=== PATIENT | male | born 1970 | race Caucasian/White ===

== ENCOUNTER → 2017-07-09 | Outpatient (CLI) | payer MEDICAID ==
--- NOTE | 2017-07-11 09:40 | ECHOF ---
Referral Reason:Q23.1 Bicuspid arotic valve MEASUREMENTS -------- HEIGHT: 190.5 cm WEIGHT: 108.9 kg BP: 163/93 RVIDd: 3.5 cm (< 3.3) IVSd: 1.5 cm (0.6 - 1.1) LVIDd: 4.4 cm (3.9 - 5.3) LVPWd: 1.4 cm (0.6 - 1.1) IVSs: 1.7 cm LVIDs: 3.2 cm LVPWs: 1.7 cm LA Diam: 3.8 cm (2.7 - 3.8) LAESV Index (A-L): 28.39 ml/m Ao Diam: 4.3 cm (2.0 - 3.7) AV Cusp: 2.1 cm (1.5 - 2.6) MV EXCURSION: 16.659 mm (> 18.000) MV EF SLOPE: 93 mm/s (70 - 150) EPSS: 1.4 cm MV E Rober: 0.71 m/s MV DecT: 439 ms MV A Rober: 0.86 m/s MV E/A Ratio: 0.83 AV maxP.21 mmHg AV meanP.19 mmHg AR PHT: 511 ms RAP: 5.00 mmHg RVSP: 23.28 mmHg FINDINGS -------- Sinus rhythm. This was a technically good study. The left ventricular size is normal. There is moderate concentric left ventricular hypertrophy. O verall left ventricular systolic function is normal with, an EF between 55 - 60 %. The right ventricle is mildly enlarged. Normal LA size by volume 22+/-6 ml/m2. The right atrium is normal in size. The aortic valve is bicuspid. There is mild to moderate aortic valve sclerosis. There is moderate aortic regurgitation. There is mild aortic stenosis present. Peak/mean gradient across the Aorti c Valve is 26.21mmHg / 15.19mmHg. The mitral valve is normal. There is trace to mild mitral regurgitation. Ant. Mitral leaflet is m yxomatous and slightly redundant without prolapse. Mild tricuspid regurgitation present. Right ventricular systolic pressure is normal at < 35 mmHg. Trace/mild (physiologic) pulmonic regurgitation. The aortic root is dilated measuring 4.3cm. Normal inferior vena cava with normal inspiratory collapse consistent with estimated right atrial pre ssure of 5 mmHg. There is no pericardial effusion. CONCLUSIONS -------- 1. Sinus rhythm. 2. This was a technically good study. 3. The left ventricular size is normal. 4. There is moderate concentric left ventricular hypertrophy. 5. Overall left ventricular systolic function is normal with, an EF between 55 - 60 %. 6. The right ventricle is mildly enlarged. 7. Normal LA size by volume 22+/-6 ml/m2. 8. The right atrium is normal in size. 9. The aortic valve is bicuspid. 10. There is mild to moderate aortic valve sclerosis. 11. There is moderate aortic regurgitation. 12. There is mild aortic stenosis present. 13. Peak/mean gradient across the Aortic Valve is 26.21mmHg / 15.19mmHg. 14. The mitral valve is normal. 15. There is trace to mild mitral regurgitation. 16. Mild tricuspid regurgitation present. 17. Right ventricular systolic pressure is normal at < 35 mmHg. 18. Trace/mild (physiologic) pulmonic regurgitation. 19. The aortic root is dilated measuring 4.3cm. 20. Normal inferior vena cava with normal inspiratory collapse consistent with estimated right atrial pressure of 5 mmHg. 21. There is no pericardial effusion. SUSTAINABILITY PROJECT COORDINATOR: Karli Renee RDCS
== END | disposition home or self-care (01) ==
LOC: RADECHMAIN 16:20
PROVIDERS: ATTEND Family Medicine
DX: I08.2 Rheumatic disorders of both aortic and tricuspid valves (principal); I77.819 Aortic ectasia, unspecified site
CPT/HCPCS: 93306

== ENCOUNTER 2017-07-16 08:00 | Day surgery (SDC) | payer MEDICAID ==
[2017-07-14 14:43] VITALS: BMI 31.1
[2017-07-16 08:25] VITALS: TEMP 97.8
[2017-07-16] MEDS: LACTATED RINGERS 1,000 ML IV SCH ×2 (08:31→08:44)
[2017-07-16] MEDS ORDERED: LIDOCAINE 1% 20 ML VIAL (10MG/ML) FOR IV START INTRADERMA ONE (08:31)
[2017-07-16] MEDS ORDERED: LIDOCAINE 1% INJ 10MG/ML (20 ML MDV) ONE (08:49)
[2017-07-16] MEDS ORDERED: PROPOFOL 10 MG/ML 20 ML VIAL IV ONE (08:49)
--- NOTE | 2017-07-16 09:06 | P.PCN ---
Date of Procedure: 07/16/17 Procedure(s) Performed: BRIEF HISTORY: Patient is a 46-year-old pleasant white male, scheduled for an elective colonoscopy as a part of evaluation of blood in the stool. PROCEDURE PERFORMED: Colonoscopy. PREOPERATIVE DIAGNOSIS: Blood in the stool. IV sedation per Anesthesia. PROCEDURE: After informed consent was obtained, the patient, was brought into the endoscopy unit. IV sedation was administered by Anesthesia under continuous monitoring. Digital rectal examination was normal. Initially the Olympus CF- 160 flexible video colonoscope was then inserted in the rectum, gradually advanced into the cecum without any difficulty. Careful examination was performed as the scope was gradually being withdrawn. Ileocecal valve and the appendiceal orifice were visualized and appeared normal. Prep was excellent. Mucosa of the cecum, ascending colon, transverse colon, descending colon, sigmoid colon, and rectum appeared normal. Retroflexion was performed in the rectum and small internal hemorrhoids were seen. The patient tolerated the procedure well. IMPRESSION: Normal-appearing colon from rectum to cecum with no evidence of colorectal neoplasia. Small internal hemorrhoids. RECOMMENDATIONS: Findings of this examination were discussed with the patient as well as his family. He was advised to have a repeat screening colonoscopy in 10 years..
[2017-07-16 09:09] VITALS: RESP 16
[2017-07-16 09:20] VITALS: BP 134/90; PULSE 65
== END 2017-07-16 09:52 | disposition home or self-care (01) ==
LOC: ORWHC2ENDO 08:00
PROVIDERS: ATTEND Internal Medicine Gastroenterology
DX: K64.8 Other hemorrhoids (principal); Z79.1 Long term (current) use of non-steroidal anti-inflammatories (NSAID); Z79.899 Other long term (current) drug therapy; K21.9 Gastro-esophageal reflux disease without esophagitis
CPT/HCPCS: 45378; J2001; J2704

== ENCOUNTER → 2017-10-04 | Outpatient (CLI) | payer MEDICAID ==
--- NOTE | 2017-10-04 11:49 | CT ---
EXAMINATION TYPE: CT angio chest DATE OF EXAM: 10/04/2017 COMPARISON: CT chest October 26, 2012. HISTORY: Bicuspid valve disorder, pt offers no complaints CT DLP: 364.2 mGycm. Automated Exposure Control for Dose Reduction was Utilized. CONTRAST: CTA scan of the thorax is performed with IV Contrast, patient injected with 100 mL of Isovue 370, ane urysm protocol. Three-D reconstructed are created on independent workstation and reviewed. FINDINGS: LUNGS: The lungs are grossly clear, there is no concerning parenchymal mass or nodule identified. T here is no pleural effusion or pneumothorax seen. The tracheobronchial tree is patent. MEDIASTINUM: There is satisfactory enhancement of the pulmonary artery and its branches, there is no CT evidence for pulmonary embolism. There are no greater than 1 cm hilar or mediastinal lymph nodes. No cardiomegaly or pericardial effusion is seen. Some pulsation artifact at root of aorta is ident ified. Ascending aorta measures up to 4.7 cm in diameter axial image 31. There is mild to moderate ca lcification at aortic valve level without obvious suspicious thickening of leaflets. No aneurysmal ex tension into arch or descending aorta is identified. No linear hypodensity or dissection is seen. The re is normal three-vessel origin from the arch. No significant plaque or stenosis is present. OTHER: Small splenule is seen in splenic hilum axial image 63. Mild multilevel spurring in thoracic s pine is noted. IMPRESSION: Ascending aortic aneurysm measures up to 4.7 cm in size larger versus prior study.
== END | disposition home or self-care (01) ==
LOC: RADCTMAIN 10:55
PROVIDERS: ATTEND Internal Medicine Interventional Cardiology
DX: I71.2 Thoracic aortic aneurysm, without rupture (principal)
CPT/HCPCS: 71275; Q9967

== ENCOUNTER → 2018-04-27 | Outpatient (CLI) | payer MEDICAID ==
--- NOTE | 2018-04-27 22:17 | CT ---
EXAMINATION TYPE: CT angio chest DATE OF EXAM: 04/27/2018 COMPARISON: 10/04/2017 and 10/26/2012 HISTORY: 47-year-old male Follow up for ascending aortic aneurysm. TECHNIQUE: Contiguous axial scanning of the chest performed with IV Contrast, patient injected with 1 00ml mL of Isovue 370.: Sagittal MIP reconstructions performed. 3-D reconstructions generated on a de dicated independent workstation. CT DLP: 485 mGycm Automated exposure control for dose reduction was used. FINDINGS: Heart is upper limits of normal in size without pericardial effusion. Aortic root measures 4.3 cm versus 4.1 cm, previously. Mid ascending aorta measures 4.6 cm versus 4.6 cm, previously. Conventional arch vessel branching anatomy. Upper descending thoracic aorta borderline ectatic at 3.0 cm. Mid descending thoracic aorta ectatic at 2.8 cm. Lower descending thoracic aorta ectatic at 2.6 cm. Mildly enlarged caliber to the main right pulmonary artery measuring up to 2.7 cm may reflect underly ing pulmonary arterial hypertension. No thoracic lymphadenopathy by CT size criteria. A 4 mm peripheral right upper lobe pulmonary nodule is stable from 2012. Axial image 17. There is str fabio atelectasis at the left base. No consolidation or pleural effusion. Visualized upper abdomen shows some enlarged mesenteric lymph nodes measuring up to 1.0 cm, axial dory ge 75. Imaging on the current study extends more caudally than on prior exam. Unable to determine sta bility. There is a hilar splenule and small hiatal hernia. Bones: Mild endplate spondylosis within the thoracic spine. No osseous destructive process. IMPRESSION: 1. MILDLY ANEURYSMAL AORTIC ROOT IS STABLE TO MINIMALLY INCREASED (4.3 CM NOW VERSUS 4.1 CM). 2. STABLE ANEURYSM ASCENDING AORTA 4.6 CM. 3. STABLE ECTATIC DESCENDING THORACIC AORTA MEASURING UP TO 3.0 CM. 4. POSSIBLE UNDERLYING PULMONARY ARTERIAL HYPERTENSION. 5. SOME MILDLY ENLARGED MESENTERIC LYMPH NODES IN THE MID ABDOMEN MEASURING UP TO 1 CM. THE PATIENT' S PREVIOUS CT CHEST EXAMS DID NOT EXTEND THIS FAR INFERIORLY AND STABILITY CANNOT BE DETERMINED. CONS IDER INCLUDING THE ABDOMEN ON THE PATIENT'S FOLLOW-UP EXAM. 6. SMALL HIATAL HERNIA.
--- NOTE | 2018-04-28 11:58 | ECHOF ---
Referral Reason:I71.2 Ascending aortic aneurysm MEASUREMENTS -------- HEIGHT: 188.0 cm WEIGHT: 108.9 kg BP: RVIDd: 3.3 cm (< 3.3) IVSd: 1.4 cm (0.6 - 1.1) LVIDd: 5.4 cm (3.9 - 5.3) LVPWd: 1.3 cm (0.6 - 1.1) IVSs: 1.9 cm LVIDs: 3.4 cm LVPWs: 1.7 cm LA Diam: 3.5 cm (2.7 - 3.8) Ao Diam: 3.7 cm (2.0 - 3.7) AV Cusp: 2.0 cm (1.5 - 2.6) LA Diam: 3.4 cm (2.7 - 3.8) EPSS: 1.0 cm MV E Rober: 0.79 m/s MV DecT: 278 ms MV A Rober: 0.82 m/s MV E/A Ratio: 0.97 AV maxP.78 mmHg AV meanP.66 mmHg AR PHT: 451 ms RAP: 5.00 mmHg RVSP: 24.36 mmHg MV EF SLOPE: 60.64 mm/s (70 - 150) MV EXCURSION: 1.93 cm (> 18.000) FINDINGS -------- Sinus rhythm. This was a technically good study. The left ventricular size is normal. There is moderate concentric left ventricular hypertrophy. O verall left ventricular systolic function is normal with, an EF between 55 - 60 %. The right ventricle is normal in size. The left atrial size is normal. The right atrial size is normal. There is moderate aortic regurgitation. There is mild aortic stenosis present. Peak/mean gradient across the Aortic Valve is 31.78mmHg / 15.66mmHg. Functionally bicuspid aortic valve. The mitral valve is normal. Mild mitral regurgitation is present. Mild tricuspid regurgitation present. There is no evidence of pulmonary hypertension. The right v entricular systolic pressure, as measured by Doppler, is 24.36mmHg. Trace/mild (physiologic) pulmonic regurgitation. The aortic root size is normal. There is no pericardial effusion. CONCLUSIONS -------- 1. Sinus rhythm. 2. This was a technically good study. 3. The left ventricular size is normal. 4. There is moderate concentric left ventricular hypertrophy. 5. Overall left ventricular systolic function is normal with, an EF between 55 - 60 %. 6. The left atrial size is normal. 7. There is moderate aortic regurgitation. 8. There is mild aortic stenosis present. 9. Peak/mean gradient across the Aortic Valve is 31.78mmHg / 15.66mmHg. 10. Functionally bicuspid aortic valve. 11. Mild mitral regurgitation is present. 12. Mild tricuspid regurgitation present. 13. There is no evidence of pulmonary hypertension. 14. Trace/mild (physiologic) pulmonic regurgitation. 15. The aortic root size is normal. 16. There is no pericardial effusion. BUSINESS SEGMENT MANAGER: Phylicia Le RDCS
== END | disposition home or self-care (01) ==
LOC: RADECHMAIN 14:49
PROVIDERS: ATTEND Internal Medicine Interventional Cardiology
DX: Q23.1 Congenital insufficiency of aortic valve (principal); I77.810 Thoracic aortic ectasia
CPT/HCPCS: 93306; 71275; Q9967

== ENCOUNTER → 2018-06-22 | Outpatient (CLI) | payer MEDICAID ==
--- NOTE | 2018-06-22 22:11 | CT ---
EXAMINATION TYPE: CT abdomen pelvis w con DATE OF EXAM: 06/22/2018 COMPARISON: NONE HISTORY: 47-year-old male Non-specific mesenteric lymphadenitis. TECHNIQUE: Contiguous axial scanning of the abdomen and pelvis following administration of 100 ml Iso alexis 300 IV contrast. Delayed images through the kidneys and coronal/sagittal reconstructions perform ed. CT DLP: 1135.2 mGycm Automated exposure control for dose reduction was used. FINDINGS: Heart normal size without pericardial effusion. Lung bases clear without pleural effusion. There is a small hiatal hernia. No focal liver lesion or biliary ductal dilatation. Portal venous system is patent. Gallbladder, adrenal glands, kidneys, spleen with hilar splenule, and pancreas appear within normal l imits. Scattered mesenteric lymph nodes are present measuring up to 1.1 cm, for example, refer to coronal im age 41. Numerous lymph nodes are nonenlarged and borderline enlarged. No dilated small bowel, free fluid, or free air. No retroperitoneal lymphadenopathy seen. Scattered mild to moderate stool burden. No pericolonic inflammatory change. Bladder urine distended. No abnormal fluid collection in pelvis or pelvic lymphadenopathy. Bones: Mild degenerative spurring at the hips. Degenerative bridging ankylosis at the SI joints. No o sseous destructive process. IMPRESSION: 1. NUMEROUS NONENLARGED AND BORDERLINE TO MILDLY ENLARGED MESENTERIC LYMPH NODES MEASURING UP TO 1.1 CM. FINDINGS MAY BE IN KEEPING WITH MESENTERIC ADENITIS. CONSIDER FOLLOW-UP IN 3 MONTHS TO ENSURE STA BILITY OR RESOLUTION AND EXCLUDE A MORE AGGRESSIVE ETIOLOGY. 2. SMALL HIATAL HERNIA.
== END ==
LOC: RADCTMAIN 15:57
PROVIDERS: ATTEND Family Medicine
DX: R59.0 Localized enlarged lymph nodes (principal); K44.9 Diaphragmatic hernia without obstruction or gangrene
CPT/HCPCS: 74177; Q9967

== ENCOUNTER → 2018-06-25 | Outpatient (CLI) | payer MEDICAID ==
[2018-06-25 08:57] LABS: Basophils # (A) 0.1 k/uL (0-0.2); Basophils % (A) 1 %; Eosinophils # (A) 0.3 k/uL (0-0.7); Eosinophils % (A) 5 %; HCT 46.1 % (39.0-53.0); HGB 15.3 gm/dL (13.0-17.5); Lymphocytes # (A) 1.7 k/uL (1.0-4.8); Lymphocytes % (A) 31 %; MCH 31.2 pg (25.0-35.0); MCHC 33.2 g/dL (31.0-37.0); Mean Platelet Volume 7.2; Monocytes # (A) 0.6 k/uL (0-1.0); Monocytes % (A) 11 %; Neutrophils # (A) 2.7 k/uL (1.3-7.7); Neutrophils % (A) 50 %; Platelet Count 211 k/uL (150-450); RBC 4.91 m/uL (4.30-5.90); RDW 12.7 % (11.5-15.5); WBC 5.4 k/uL (3.8-10.6)
[2018-06-25 16:37] LABS: Albumin 4.5 g/dL (3.80-4.90); Albumin/Globulin Ratio 1.96 (1.60-3.17); Anion Gap 9.4 mmol/L (4.00-12.00); Calcium 9.3 mg/dL (8.7-10.3); Carbon Dioxide 25.6 mmol/L (21.6-31.8); Globulin 2.3 g/dL (1.6-3.3); LDL Cholesterol,Calculated 79.8 mg/dL (0.0-131.0); Potassium 4.4 mmol/L (3.5-5.5); Total Bilirubin 0.7 mg/dL (0.3-1.2); Total Protein 6.8 g/dL (6.2-8.2); VLDL Calculation 11.2 mg/dL (5.00-40.00)
[2018-06-25 16:45] LABS: T4, Free (Free Thyroxine) 0.9 ng/dL (0.80-1.80)
== END | disposition home or self-care (01) ==
LOC: LABWHC1 08:22
PROVIDERS: ATTEND Family Medicine
DX: Z00.00 Encounter for general adult medical examination without abnormal findings (principal)
CPT/HCPCS: 36415; 80053; 80061; 84153; 84439; 84443; 85025

== ENCOUNTER → 2019-01-09 | Outpatient (CLI) | payer MEDICAID ==
--- NOTE | 2019-01-09 16:23 | CT ---
CT CHEST FOR PULMONARY EMBOLISM. EXAMINATION TYPE: CT angio chest DATE OF EXAM: 01/09/2019 INDICATION: Bicuspid aortic aneurysm. CT DLP: 479 mGycm, Automated exposure control for dose reduction was used. CONTRAST: Patient injected with 100 mL of Isovue 370. COMPARISON: 04/27/2018 TECHNIQUE: CT of the chest is performed on a spiral scan at 2 mm thick sections. Study is performed with intravenous contrast timed for evaluation for aortic evaluation This will limit additional porti ons of the evaluation. 3-D MIP images reconstructed by the technologist are reviewed on the computer in the coronal and sagittal planes. FINDINGS: No persistent obvious filling defects are evident to suggest an acute pulmonary embolism. No mediastinal or hilar adenopathy enlarged by CT criteria is evident. The ascending aorta diameter at the level of the main pulmonary artery is 4.2 cm. The main pulmonary artery diameter at the bifur cation is 2.6 cm. The aorta at the aortic root measures 3.8 cm. The aorta at the aortic arch measures 2.8 cm. The desce nding thoracic aorta at the level of the diaphragm measures 2.8 cm. Lung windows are clear. Limited CT section through the upper abdomen are unremarkable. IMPRESSIONS: 1. Ascending thoracic aortic aneurysm of 4.2 cm is stable from comparison
--- NOTE | 2019-01-09 17:06 | ECHOF ---
Referral Reason:Bicuspid aortic aneurysm I71.2 MEASUREMENTS -------- HEIGHT: 190.5 cm WEIGHT: 106.6 kg BP: 131/82 RVIDd: 3.5 cm (< 3.3) IVSd: 1.4 cm (0.6 - 1.1) LVIDd: 5.8 cm (3.9 - 5.3) LVPWd: 1.3 cm (0.6 - 1.1) IVSs: 1.8 cm LVIDs: 4.2 cm LVPWs: 1.8 cm LA Diam: 3.6 cm (2.7 - 3.8) LAESV Index (A-L): 35.16 ml/m Ao Diam: 4.2 cm (2.0 - 3.7) AV Cusp: 2.0 cm (1.5 - 2.6) EPSS: 1.3 cm MV E Rober: 0.83 m/s MV DecT: 388 ms MV A Rober: 0.67 m/s MV E/A Ratio: 1.24 AV maxP.29 mmHg AV meanP.54 mmHg AR PHT: 876 ms RAP: 5.00 mmHg RVSP: 24.42 mmHg MV EF SLOPE: 50.50 mm/s (70 - 150) MV EXCURSION: 1.59 cm (> 18.000) FINDINGS -------- Sinus rhythm. This was a technically good study. The left ventricular size is normal. There is moderate concentric left ventricular hypertrophy. O verall left ventricular systolic function is normal with, an EF between 60 - 65 %. The right ventricle is mildly enlarged. Left atrium is moderately dilated by volume. The right atrium is normal in size and function. Interatrial and interventricular septum intact. The aortic valve is bicuspid. There is moderate aortic valve sclerosis without stenosis. There is mild aortic regurgitation. There is mild aortic stenosis present. Peak/mean gradient across the valve is 28.29mmHg / 16.54mmHg. The aortic root and ascending aorta are dilated measuring up to 43 mm. Normal inferior vena cava with normal inspiratory collapse consistent with estimated right atrial pre ssure of 5 mmHg. There is no pericardial effusion. CONCLUSIONS -------- 1. Sinus rhythm. 2. This was a technically good study. 3. The left ventricular size is normal. 4. There is moderate concentric left ventricular hypertrophy. 5. Overall left ventricular systolic function is normal with, an EF between 60 - 65 %. 6. The right ventricle is mildly enlarged. 7. Left atrium is moderately dilated by volume. 8. The right atrium is normal in size and function. 9. Interatrial and interventricular septum intact. 10. The aortic valve is bicuspid. 11. There is moderate aortic valve sclerosis without stenosis. 12. There is mild aortic regurgitation. 13. There is mild aortic stenosis present. 14. Peak/mean gradient across the valve is 28.29mmHg / 16.54mmHg. 15. The aortic root and ascending aorta are dilated measuring up to 43 mm. 16. Normal inferior vena cava with normal inspiratory collapse consistent with estimated right atrial pressure of 5 mmHg. 17. There is no pericardial effusion. RAILWAY SIGNAL OPERATOR: TIKA Alarcon
== END | disposition home or self-care (01) ==
LOC: RADCTMAIN 15:16
PROVIDERS: ATTEND Internal Medicine Interventional Cardiology
DX: I71.2 Thoracic aortic aneurysm, without rupture (principal)
CPT/HCPCS: 93306; 71275; Q9967

== ENCOUNTER → 2019-01-12 | Outpatient (CLI) | payer MEDICAID ==
--- NOTE | 2019-01-12 15:44 | CT ---
EXAMINATION TYPE: CT abdomen pelvis w con DATE OF EXAM: 01/12/2019 COMPARISON: CT abdomen and pelvis June 22, 2018 HISTORY: Mesenteric lymphadenopathy CT DLP: 1260.40 mGycm, Automated Exposure Control for Dose Reduction was Utilized. CONTRAST: CT scan of the abdomen and pelvis is performed with oral and with IV Contrast, patient injected with 100 mL of Isovue 300. FINDINGS: LUNG BASES: No significant abnormality is appreciated. LIVER/GB: No significant abnormality is appreciated. PANCREAS: No significant abnormality is seen. SPLEEN: No significant abnormality is seen. ADRENALS: No significant abnormality is seen. KIDNEYS: No significant abnormality is seen. BOWEL: Oral contrast does not reach level of the terminal ileum making evaluation of distal bowel sub optimal. No suspicious small or large bowel dilatation. PROSTATE/SEMINAL VESICLES: No gross abnormality seen. LYMPH NODES: No greater than 1cm abdominal or pelvic lymph nodes are appreciated. Prominent but subc entimeter lymph nodes throughout the central mesentery are redemonstrated seen best on coronal images . OSSEOUS STRUCTURES: No significant abnormality is seen. OTHER: No significant additional abnormality is seen. IMPRESSION: No new or enlarging adenopathy identified.
== END | disposition home or self-care (01) ==
LOC: RADCTMAIN 13:23
PROVIDERS: ATTEND Family Medicine
DX: I88.0 Nonspecific mesenteric lymphadenitis (principal)
CPT/HCPCS: 74177; Q9967

== ENCOUNTER → 2020-04-10 | Outpatient (CLI) | payer MEDICAID ==
--- NOTE | 2020-04-10 15:38 | CT ---
CT CHEST FOR PULMONARY EMBOLISM. EXAMINATION TYPE: CT angio chest DATE OF EXAM: 04/10/2020 INDICATION: Ascending aortic aneurysm CT DLP: 945.30 mGycm, Automated exposure control for dose reduction was used. CONTRAST: Patient injected with 100 ml mL of Isovue 370. COMPARISON: 01/09/2019 TECHNIQUE: CT of the chest is performed on a spiral scan at 2 mm thick sections. Study is performed with intravenous contrast timed for evaluation for pulmonary embolism. This will limit additional po rtions of the evaluation. 3-D MIP images reconstructed by the technologist are reviewed on the compu ter in the coronal and sagittal planes. FINDINGS: No persistent filling defects are evident to suggest an acute pulmonary embolism. No mediastinal or hilar adenopathy enlarged by CT criteria is evident. The ascending aorta diameter at the level of the main pulmonary artery is 4.4 cm. The main pulmonary artery diameter at the bifur cation is 3.1 cm. The aorta at the aortic arch is 2.6 cm. The aorta at the aortic root is 3.9 cm. The aorta at the diap hragm is 2.7 cm. There is a 0.5 cm peripheral nodule right upper lobe. Series [address] section through the upper abdomen are unremarkable. IMPRESSIONS: 1. Stable 0.5 cm right upper lobe nodule. 2. Ascending thoracic aortic aneurysm 4.4 cm. This is increased from 4.2 cm previous.
--- NOTE | 2020-04-10 17:09 | ECHOF ---
Referral Reason:Q23.1 Bicuspid aortic valve, I71.2 Ascending aortic aneurysm MEASUREMENTS -------- HEIGHT: 185.4 cm WEIGHT: 113.4 kg BP: RVIDd: 3.3 cm (< 3.3) IVSd: 2.0 cm (0.6 - 1.1) LVIDd: 4.1 cm (3.9 - 5.3) LVPWd: 1.9 cm (0.6 - 1.1) IVSs: 2.4 cm LVIDs: 2.6 cm LVPWs: 2.3 cm LAESV Index (A-L): 30.75 ml/m Ao Diam: 3.5 cm (2.0 - 3.7) AV Cusp: 1.9 cm (1.5 - 2.6) LA Diam: 3.4 cm (2.7 - 3.8) MV EXCURSION: 16.399 mm (> 18.000) MV EF SLOPE: 69 mm/s (70 - 150) EPSS: 1.6 cm MV E Rober: 0.87 m/s MV DecT: 233 ms MV A Rober: 0.85 m/s MV E/A Ratio: 1.02 AV maxP.88 mmHg AV meanP.39 mmHg AR PHT: 490 ms RAP: 5.00 mmHg RVSP: 22.25 mmHg FINDINGS -------- This was a technically good study. The left ventricular size is normal. There is severe concentric left ventricular hypertrophy. Ove rall left ventricular systolic function is normal with, an EF between 55 - 60 %. Normal LAP. Grade 1 Diastolic Dysfunction. The right ventricle is normal in size. LA is midly dilated 29-33ml/m2. The right atrial size is normal. The aortic valve is bicuspid. There is mild aortic regurgitation. There is mild aortic stenosis p resent. Peak/mean gradient across the Aortic Valve is 25.88mmHg / 15.39mmHg. The mitral valve is normal. The mitral valve leaflets are mildly thickened. Mild mitral regurgita tion is present. The tricuspid valve appears structurally normal. Mild tricuspid regurgitation present. Right vent ricular systolic pressure is normal at < 35 mmHg. Trace/mild (physiologic) pulmonic regurgitation. The ascending aorta is dilated measuring up to 4.2 cm. Normal inferior vena cava with normal inspiratory collapse consistent with estimated right atrial pre ssure of 5 mmHg. There is no pericardial effusion. CONCLUSIONS -------- 1. The left ventricular size is normal. 2. There is severe concentric left ventricular hypertrophy. 3. Overall left ventricular systolic function is normal with, an EF between 55 - 60 %. 4. Normal LAP. Grade 1 Diastolic Dysfunction. 5. LA is midly dilated 29-33ml/m2. 6. The aortic valve is bicuspid. 7. There is mild aortic regurgitation. 8. There is mild aortic stenosis present. 9. Peak/mean gradient across the Aortic Valve is 25.88mmHg / 15.39mmHg. 10. The mitral valve leaflets are mildly thickened. 11. Mild mitral regurgitation is present. 12. Mild tricuspid regurgitation present. 13. Trace/mild (physiologic) pulmonic regurgitation. 14. The ascending aorta is dilated measuring up to 4.2 cm. 15. There is no pericardial effusion. UNIVERSITY TUTOR: Melissa Walsh RDCS
== END | disposition home or self-care (01) ==
LOC: RADECHMAIN 11:06
PROVIDERS: ATTEND Internal Medicine Interventional Cardiology
DX: I08.3 Combined rheumatic disorders of mitral, aortic and tricuspid valves (principal); I37.1 Nonrheumatic pulmonary valve insufficiency; R91.1 Solitary pulmonary nodule; I71.2 Thoracic aortic aneurysm, without rupture
CPT/HCPCS: 93306; 71275; Q9967

== ENCOUNTER → 2020-07-26 | Outpatient (CLI) | payer MEDICAID ==
[2020-07-26 09:20] LABS: African American GFR (CKD) >90 (>60 ml/min/1.73 sqM); Albumin 4.2 g/dL (3.5-5.0); Anion Gap 5 mmol/L; Blood Urea Nitrogen 20 mg/dL (9-20); Calcium 9.2 mg/dL (8.4-10.2); Carbon Dioxide 30 mmol/L (22-30); Chloride 102 mmol/L (98-107); Globulin 2.9 g/dL; Glucose 121 mg/dL (74-99); Non-African American GFR(CKD) >90 (>60 ml/min/1.73 sqM); Potassium 4.6 mmol/L (3.5-5.1); Sodium 137 mmol/L (137-145); Total Protein 7.1 g/dL (6.3-8.2)
[2020-07-26 09:21] LABS: ALT 40 U/L (4-49); AST 35 U/L (17-59); Albumin/Globulin Ratio 1.4; Alkaline Phosphatase 62 U/L (38-126); Cholesterol 146 mg/dL (<200); HDL Cholesterol 37 mg/dL (40-60); LDL Cholesterol,Calculated 90 mg/dL (0-99); Total Bilirubin 0.8 mg/dL (0.2-1.3); Triglycerides 93 mg/dL (<150)
[2020-07-26 09:32] LABS: T4, Free (Free Thyroxine) 0.95 ng/dL (0.78-2.19)
[2020-07-26 10:26] LABS: Basophils # (A) 0.07 X 10*3/uL (0.00-0.10); Basophils % (A) 0.9 %; Eosinophils # (A) 0.35 X 10*3/uL (0.04-0.35); Eosinophils % (A) 4.4 %; HCT 43.6 % (39.6-50.0); HGB 14.9 g/dL (13.0-17.0); Lymphocytes # (A) 2.89 X 10*3/uL (0.90-5.00); MCHC 34.2 g/dL (32.0-37.0); MCV 93.8 fL (80.0-97.0); Mean Platelet Volume 10.4 fL (9.5-12.2); Monocytes # (A) 0.81 X 10*3/uL (0.20-1.00); Monocytes % (A) 10.1 %; Neutrophils # (A) 3.87 X 10*3/uL (1.80-7.70); Neutrophils % (A) 48.2 %; Platelet Count 260 X 10*3/uL (140-440); RBC 4.65 X 10*6/uL (4.40-5.60); RDW 12.4 % (11.5-14.5); WBC 8.02 X 10*3/uL (4.50-10.00)
[2020-07-26 15:23] LABS: Hemoglobin A1C 5.8 % (4.0-6.0)
== END | disposition home or self-care (01) ==
LOC: LABWHC1 07:04
PROVIDERS: ATTEND Family Medicine
DX: Z00.00 Encounter for general adult medical examination without abnormal findings (principal); Z12.5 Encounter for screening for malignant neoplasm of prostate; Z11.59 Encounter for screening for other viral diseases; E78.5 Hyperlipidemia, unspecified
CPT/HCPCS: 36415; 80053; 80061; 83036; 84153; 84439; 84443; 85025; 86803

== ENCOUNTER → 2021-01-13 | Outpatient (CLI) | payer MEDICAID ==
--- NOTE | 2021-01-13 12:58 | ECHOF ---
Referral Reason:Q23.1 Bicuspid aortic valve, I71.2 Thoracic aorti MEASUREMENTS -------- HEIGHT: 190.5 cm WEIGHT: 115.7 kg BP: RVIDd: 3.7 cm (< 3.3) IVSd: 1.9 cm (0.6 - 1.1) LVIDd: 5.0 cm (3.9 - 5.3) LVPWd: 1.8 cm (0.6 - 1.1) IVSs: 2.1 cm LVIDs: 3.5 cm LVPWs: 2.1 cm LAESV Index (A-L): 24.38 ml/m Ao Diam: 3.7 cm (2.0 - 3.7) AV Cusp: 1.8 cm (1.5 - 2.6) MV EXCURSION: 15.965 mm (> 18.000) MV EF SLOPE: 106 mm/s (70 - 150) EPSS: 1.2 cm MV E Rober: 0.96 m/s MV DecT: 245 ms MV A Rober: 0.65 m/s MV E/A Ratio: 1.48 AV maxP.23 mmHg AV meanP.81 mmHg AR PHT: 554 ms FINDINGS -------- Sinus rhythm. This was a technically adequate study. The left ventricular size is normal. There is moderate concentric left ventricular hypertrophy. O verall left ventricular systolic function is normal with, an EF between 55 - 60 %. The diastolic fi lling pattern is normal for the age of the patient 20.58. The right ventricle is mildly enlarged. Normal LA size by volume 22+/-6 ml/m2. The right atrial size is normal. Interatrial and interventricular septum intact. There is [id number] aortic regurgitation. There is mild aortic stenosis present. Peak/mean gradient across the Aortic Valve is 26.23mmHg / 16.81mmHg. Functionally bicuspid aortic valve. No mitral regurgitation. Trace tricuspid regurgitation present. Unable to estimate RVSP due to inadequate TR jet spectral do ppler profile. There is no pulmonic regurgitation present. The aortic root and ascending aorta are dilated measuring up to (3.7 aortic root and 4.3 ascending ao rta) cm. IVC Not well visulized. There is no pericardial effusion. CONCLUSIONS -------- 1. The left ventricular size is normal. 2. There is moderate concentric left ventricular hypertrophy. 3. Overall left ventricular systolic function is normal with, an EF between 55 - 60 %. 4. The diastolic filling pattern is normal for the age of the patient 20.58 5. The right ventricle is mildly enlarged. 6. There is [id number] aortic regurgitation. 7. There is mild aortic stenosis present. 8. Peak/mean gradient across the Aortic Valve is 26.23mmHg / 16.81mmHg. 9. Functionally bicuspid aortic valve. 10. Trace tricuspid regurgitation present. 11. The aortic root and ascending aorta are dilated measuring up to (3.7 aortic root and 4.3 ascendin g aorta) cm. WATERPROOF BAG CUTTING MACHINE OPERATOR: Fallon Lechuga RDCS
== END | disposition home or self-care (01) ==
LOC: RADECHMAIN 11:18
PROVIDERS: ATTEND Internal Medicine Interventional Cardiology
DX: I51.7 Cardiomegaly (principal); Q23.1 Congenital insufficiency of aortic valve; I08.2 Rheumatic disorders of both aortic and tricuspid valves
CPT/HCPCS: 93306

== ENCOUNTER → 2021-01-15 | Outpatient (CLI) | payer MEDICAID ==
--- NOTE | 2021-01-15 22:22 | XR ---
EXAMINATION TYPE: XR chest 2V DATE OF EXAM: 01/15/2021 CLINICAL HISTORY: R06.09. TECHNIQUE: Frontal and lateral view of the chest. COMPARISON: 01/27/2011 FINDINGS: The cardiomediastinal silhouette is within normal limits for size. Pulmonary vasculature i s normal. There is no focal air space opacity. No pleural effusion. No pneumothorax seen. No acute d isplaced osseous fracture. IMPRESSION: No acute cardiopulmonary process.
== END | disposition home or self-care (01) ==
LOC: RADXRMAIN 16:34
PROVIDERS: ATTEND Family Medicine
DX: R06.09 Other forms of dyspnea (principal)
CPT/HCPCS: 71046

== ENCOUNTER → 2021-03-28 | Outpatient (CLI) | payer MEDICAID ==
--- NOTE | 2021-03-28 10:38 | CT ---
EXAMINATION TYPE: CT angio chest DATE OF EXAM: 03/28/2021 10:29 AM COMPARISON: 04/10/2020 HISTORY: Thoracic Aortic Aneurysm CT DLP: 387.5 mGycm Automated exposure control for dose reduction was used. CONTRAST: CTA scan of the thorax is performed with IV Contrast, patient injected with 100 mL of Isovue 370, pul monary embolism protocol. . FINDINGS: LUNGS: The lungs are grossly clear, there is no concerning parenchymal mass or nodule identified. T here is no pleural effusion or pneumothorax seen. The tracheobronchial tree is patent. Stable 5 mm n odule right upper lobe. Subpleural linear density measuring 4 mm right middle lobe likely inflammator y. MEDIASTINUM: There is satisfactory enhancement of the pulmonary artery and its branches, there is no CT evidence for pulmonary embolism. There are no greater than 1 cm hilar or mediastinal lymph nodes. Heart is enlarged. Thoracic ascending aorta measures 4.5 x 4.2 cm and previously measured 4.4 cm in maximal dimension. OTHER: Hypertrophic and degenerative changes spine. Small hiatal hernia. Splenic accessory splenule noted. IMPRESSION: 1. Ascending thoracic aorta measures 4.5 cm compatible with mild aneurysmal dilation and previously m easured 4.4 cm. 2. Stable 5 mm right upper lobe pulmonary nodule. 3. Cardiomegaly
== END | disposition home or self-care (01) ==
LOC: RADCTMAIN 08:45
PROVIDERS: ATTEND Thoracic Surgery (Cardiothoracic Vascular Surgery)
DX: I71.2 Thoracic aortic aneurysm, without rupture (principal)
CPT/HCPCS: 71275; Q9967

== ENCOUNTER → 2021-08-13 | Outpatient (CLI) | payer MEDICAID ==
[2021-08-13 13:57] LABS: Basophils # (A) 0.03 X 10*3/uL (0.00-0.10); Basophils % (A) 0.4 %; Eosinophils # (A) 0.33 X 10*3/uL (0.04-0.35); Eosinophils % (A) 4.6 %; HCT 44.7 % (39.6-50.0); HGB 14.9 g/dL (13.0-17.0); Immature Grans, Automated 0.4 %; Lymphocytes # (A) 2.52 X 10*3/uL (0.90-5.00); Lymphocytes % (A) 35.5 %; MCHC 33.3 g/dL (32.0-37.0); MCV 93.1 fL (80.0-97.0); Mean Platelet Volume 10.7 fL (9.5-12.2); Monocytes # (A) 0.54 X 10*3/uL (0.20-1.00); Monocytes % (A) 7.6 %; NRBC Per 100 WBC 0 /100 WBCS (0.0-0.0); Neutrophils # (A) 3.65 X 10*3/uL (1.80-7.70); Neutrophils % (A) 51.5 %; Platelet Count 273 X 10*3/uL (140-440)
[2021-08-13 14:37] LABS: ALT 68 U/L (10-49); AST 39 U/L (14-35); African American GFR (CKD) 125.8 (60.0-200.0); Albumin 4.5 g/dL (3.8-4.9); Albumin/Globulin Ratio 1.88 (1.60-3.17); Alkaline Phosphatase 92 U/L (41-126); BUN/Creat Ratio 19.14 Ratio (12.00-20.00); Blood Urea Nitrogen 13.4 mg/dL (9.0-27.0); Calcium 9.4 mg/dL (8.7-10.3); Carbon Dioxide 23.5 mmol/L (20.0-27.5); Chloride 104 mmol/L (96-109); Chol/HDL Ratio 3.89 Ratio; Globulin 2.4 g/dL (1.6-3.3); Glucose 128 mg/dL (70-110); LDL Cholesterol,Calculated 91.7 mg/dL (0.0-131.0); Non-African American GFR(CKD) 108.5 (60.0-200.0); Potassium 4.7 mmol/L (3.5-5.5); Sodium 139 mmol/L (135-145); Total Protein 6.9 g/dL (6.2-8.2); VLDL Calculation 16.02 mg/dL (5.00-40.00)
== END | disposition home or self-care (01) ==
LOC: LABWHC1 08:07
PROVIDERS: ATTEND Family Medicine
DX: Z00.00 Encounter for general adult medical examination without abnormal findings (principal); Z12.5 Encounter for screening for malignant neoplasm of prostate
CPT/HCPCS: 36415; 80053; 80061; 84153; 84439; 84443; 85025

== ENCOUNTER → 2021-08-13 | Outpatient (CLI) | payer MEDICAID ==
--- NOTE | 2021-08-13 09:47 | XR ---
EXAMINATION TYPE: XR chest 2V DATE OF EXAM: 08/13/2021 COMPARISON: NONE TECHNIQUE: PA and lateral views submitted. HISTORY: Pain FINDINGS: The lungs are clear and there is no pneumothorax, pleural effusion, or focal pneumonia. Heart size normal. No overt failure. Biapical pleural thickening. Hypertrophic change of the spine. IMPRESSION: 1. No acute process.
--- NOTE | 2021-08-13 09:53 | XR ---
EXAMINATION TYPE: XR ribs RT DATE OF EXAM: 08/13/2021 COMPARISON: NONE HISTORY: Pain TECHNIQUE: 4 views submitted FINDINGS: Osseous structures intact. No acute displaced rib fracture. IMPRESSION: No acute displaced rib fracture.
== END | disposition home or self-care (01) ==
LOC: RADXRMAIN 08:48
PROVIDERS: ATTEND Family Medicine
DX: R07.81 Pleurodynia (principal)
CPT/HCPCS: 71046

== ENCOUNTER → 2021-09-16 | Outpatient (CLI) | payer MEDICAID ==
[2021-09-17 00:20] LABS: African American GFR (CKD) 95.2 (60.0-200.0); Albumin 4.5 g/dL (3.8-4.9); Albumin/Globulin Ratio 1.85 (1.60-3.17); Anion Gap 12.5 mmol/L (10.00-18.00); BUN/Creat Ratio 13.94 Ratio (12.00-20.00); Blood Urea Nitrogen 14.5 mg/dL (9.0-27.0); Calcium 9.2 mg/dL (8.7-10.3); Globulin 2.4 g/dL (1.6-3.3); Non-African American GFR(CKD) 82.2 (60.0-200.0); Potassium 4.1 mmol/L (3.5-5.5); Total Bilirubin 0.6 mg/dL (0.30-1.20); Total Protein 6.9 g/dL (6.2-8.2)
[2021-09-17 01:09] LABS: HCT 43.7 % (39.6-50.0); HGB 14.7 g/dL (13.0-17.0); MCH 31.6 pg (27.0-32.0); MCHC 33.6 g/dL (32.0-37.0); Mean Platelet Volume 11.1 fL (9.5-12.2); NRBC Per 100 WBC 0 /100 WBCS (0.0-0.0); Platelet Count 283 X 10*3/uL (140-440); RBC 4.65 X 10*6/uL (4.40-5.60); RDW 12.2 % (11.5-14.5); WBC 9.43 X 10*3/uL (4.50-10.00)
== END | disposition home or self-care (01) ==
LOC: LABWHC1 15:30
PROVIDERS: ATTEND Physician Assistant
DX: R73.01 Impaired fasting glucose (principal)
CPT/HCPCS: 36415; 80053; 83036; 85027

== ENCOUNTER → 2021-10-11 | Outpatient (CLI) | payer MEDICAID ==
--- NOTE | 2021-10-12 09:00 | MR ---
EXAMINATION TYPE: MR thoracic spine wo con DATE OF EXAM: 10/11/2021 COMPARISON: NONE HISTORY: Mid back pain that is mostly on right side for 6 months. TECHNIQUE: Multiplanar, multisequence imaging of thoracic spine is performed without contrast FINDINGS: Spinal cord shows normal course, caliber, and signal as it courses the thoracic spine. Jacob tebral body heights and alignment are satisfactory. Disc space heights are preserved. No suspicious p osterior disc herniations on sagittal images. Bone marrow signal intensity is maintained. Review of the axial images shows no large disc herniation, significant spinal canal stenosis , or ne ural foraminal narrowing at any thoracic level. Visualized upper abdomen and thorax show no suspicio us abnormalities IMPRESSION: No significant abnormality is seen to account for patient's symptoms.
== END | disposition home or self-care (01) ==
LOC: RADMRIMAIN 10:31
PROVIDERS: ATTEND Physician Assistant
DX: M54.9 Dorsalgia, unspecified (principal)
CPT/HCPCS: 72146

== ENCOUNTER → 2022-02-10 | Outpatient (CLI) | payer MEDICAID ==
--- NOTE | 2022-02-10 10:24 | US ---
EXAMINATION TYPE: US liver DATE OF EXAM: 02/10/2022 COMPARISON: NONE CLINICAL HISTORY: R94.5 ABN LIVER FUNCTIONS. TECHNIQUE: Multiple sonographic images of the right upper quadrant are obtained. FINDINGS: EXAM MEASUREMENTS: Liver Length: 17.7 cm Gallbladder Wall: 0.2 cm CBD: 0.2 cm Right Kidney: 12.1 x 5.2 x 5.9 cm GEM EXPERT NOTES: Extensive overlying bowel gas, technically difficult. Pancreas: Partially obscured by bowel gas, portions visualized wnl Liver: upper limites of normal in size Gallbladder: very limited visualization Evidence for sonographic Lino's sign: no CBD: wnl Right Kidney: limited visualization, no obvious mass or hydro IMPRESSION: No evidence for acute intraluminal process. Normal sonographic appearance of the liver.
[2022-02-10 15:42] LABS: HCT 42.7 % (39.6-50.0); HGB 14.6 g/dL (13.0-17.0); MCH 31.7 pg (27.0-32.0); MCHC 34.2 g/dL (32.0-37.0); MCV 92.6 fL (80.0-97.0); Mean Platelet Volume 11.2 fL (9.5-12.2); NRBC Per 100 WBC 0 /100 WBCS (0.0-0.0); Platelet Count 250 X 10*3/uL (140-440); RBC 4.61 X 10*6/uL (4.40-5.60); RDW 12.3 % (11.5-14.5); WBC 7.05 X 10*3/uL (4.50-10.00)
[2022-02-10 16:05] LABS: ALT 32 U/L (10-49); AST 24 U/L (14-35); African American GFR (CKD) 118.2 (60.0-200.0); Albumin 4.4 g/dL (3.8-4.9); Alkaline Phosphatase 72 U/L (41-126); Amylase 41 U/L (23-121); BUN/Creat Ratio 18.25 Ratio (12.00-20.00); Blood Urea Nitrogen 14.6 mg/dL (9.0-27.0); Calcium 8.9 mg/dL (8.7-10.3); Carbon Dioxide 23.3 mmol/L (20.0-27.5); Chloride 103 mmol/L (96-109); Chol/HDL Ratio 3.42 Ratio; Globulin 2.2 g/dL (1.6-3.3); Glucose 115 mg/dL (70-110); LDL Cholesterol,Calculated 76.1 mg/dL (0.0-131.0); Lipase 21 U/L (14-60); Potassium 4.5 mmol/L (3.5-5.5); Sodium 138 mmol/L (135-145); Total Protein 6.6 g/dL (6.2-8.2)
== END | disposition home or self-care (01) ==
LOC: RADUSWWP 08:52
PROVIDERS: ATTEND Family Medicine
DX: R94.5 Abnormal results of liver function studies (principal); E78.5 Hyperlipidemia, unspecified; R73.03 Prediabetes; E66.9 Obesity, unspecified
CPT/HCPCS: 76705; 80053; 80061; 82150; 83036; 83690; 84443; 85027

== ENCOUNTER → 2022-02-17 | Outpatient (CLI) | payer MEDICAID ==
--- NOTE | 2022-02-17 17:19 | CT ---
EXAMINATION TYPE: CT angio chest DATE OF EXAM: 02/17/2022 COMPARISON: 03/28/2021 HISTORY: 51-year-old male I71.2, F/U THORACIC AORTIC ANEURYSM, WITHOUT RUPTURE TECHNIQUE: Contiguous axial scanning of the chest performed without and with IV Contrast, patient inj ected with 100 mL of Isovue 370. Coronal/sagittal MIP reconstructions performed. 3-D reconstructions generated on a dedicated independent workstation. CT DLP: 1042.60 mGycm Automated exposure control for dose reduction was used. FINDINGS: Heart limits of normal in size without pericardial effusion. Moderate aortic valvular calcifications are noted. Aortic root estimated aneurysmal at 4.3 cm, unchanged. There is motion artifact limiting accurate breanne surement. Ascending aorta may measure up to 4.6 cm versus 4.4 cm, previously. Again, there is motion limiting a ssessment. Conventional branching anatomy. Upper descending thoracic aorta borderline ectatic at 3.0 cm. Mildly enlarged caliber to the main right and left pulmonary arteries up to 2.8 cm may be seen with p ulmonary arterial hypertension. Scattered small mediastinal lymph nodes. No thoracic lymphadenopathy by size criteria. Stable 4 mm peripheral right upper lobe pulmonary nodule, axial image 19. Streaky atelectasis in the lower lungs. Mild bronchial wall thickening may be seen with bronchitis or asthma can be correlated c linically. No consolidation or pleural effusion. Mild biapical pleural-parenchymal scarring. Small hiatal hernia. Visualized upper abdomen shows small anterior splenule. Bones: Scattered bridging and partially bridging anterior plate spondylosis mid to lower thoracic spi ne. IMPRESSION: 1. MODERATE AORTIC VALVULAR CALCIFICATIONS. CORRELATE TO EXCLUDE ANY UNDERLYING AORTIC STENOSIS. 2. AORTIC ROOT ANEURYSMAL AT 4.3 CM, UNCHANGED. 3. ASCENDING AORTA ESTIMATED AT 4.6 CM VERSUS 4.4 CM, PREVIOUSLY. LIMITED DUE TO PROMINENT MOTION ART IFACT. 4. THERE MAY BE UNDERLYING PULMONARY ARTERIAL HYPERTENSION. CLINICALLY CORRELATE. 5. STABLE 4 MM RIGHT UPPER LOBE PULMONARY NODULE. MILD BRONCHIAL WALL THICKENING COULD REFLECT BRONCH ITIS OR ASTHMA. 6. SMALL HIATAL HERNIA.
== END | disposition home or self-care (01) ==
LOC: RADCTMAIN 14:42
PROVIDERS: ATTEND Internal Medicine Interventional Cardiology
DX: I71.2 Thoracic aortic aneurysm, without rupture (principal); I25.10 Atherosclerotic heart disease of native coronary artery without angina pectoris; R91.1 Solitary pulmonary nodule; K44.9 Diaphragmatic hernia without obstruction or gangrene
CPT/HCPCS: 71275; Q9967

== ENCOUNTER → 2022-04-03 | Outpatient (CLI) | payer MEDICAID ==
--- NOTE | 2022-04-03 18:15 | CA ---
Transthoracic Echo Report Name: Leon Lincoln Age: 51 Gender: M : 1970 Exam Date: 04/03/2022 11:29 Exam Location: [place] [facility] Ht (in): 72 Wt (lb): 248 Ordering Physician: Brianda Sosa MD ([id number]) Attending/Referring Phys: Wearing Apparel Presser Phylicia Le, GILLIAN Procedure CPT: Indications: bicuspid av Cardiac Hx: Technical Quality: Contrast 1: Total Dose (mL): Contrast 2: Total Dose (mL): MEASUREMENTS (Male / Female) Normal Values 2D ECHO LV Diastolic Diameter PLAX 4.8 cm 4.2 - 5.9 / 3.9 - 5.3 cm LV Systolic Diameter PLAX 3.5 cm IVS Diastolic Thickness 1.3 cm 0.6 - 1.0 / 0.6 - 0.9 cm LVPW Diastolic Thickness 1.8 cm 0.6 - 1.0 / 0.6 - 0.9 cm LV Relative Wall Thickness 0.6 RV Internal Dim ED PLAX 3.9 cm LA Systolic Diameter LX 3.8 cm 3.0 - 4.0 / 2.7 - 3.8 cm LA Volume 75.3 cm??? 18 - 58 / 22 - 52 cm??? M-MODE MV E Point Septal Separation 1.7 cm DOPPLER AV Peak Velocity 265.0 cm/s AV Peak Gradient 28.1 mmHg AV Mean Velocity 183.1 cm/s AV Mean Gradient 15.1 mmHg AV Velocity Time Integral 53.3 cm AI Peak Velocity 447.7 cm/s AI Peak Gradient 80.2 mmHg AI Pressure Half Time 453.9 ms LVOT Peak Velocity 121.8 cm/s LVOT Peak Gradient 5.9 mmHg TR Peak Velocity 211.5 cm/s TR Peak Gradient 17.9 mmHg Right Ventricular Systolic Press 22.9 mmHg FINDINGS Left Ventricle Mildly increased septal wall thickness. Left ventricular ejection fraction is estimated at 50-55 %. Right Ventricle Normal right ventricular size and function. Right ventricular systolic pressure within normal limits. Right Atrium Normal right atrial size. Left Atrium Moderately increased left atrial volume. Mitral Valve Structurally normal mitral valve. Mild mitral regurgitation. Aortic Valve Bicuspid aortic valve. Mild aortic stenosis with a peak gradient of 28 mmHg and a mean gradient of 15 mmHg. moderate to severe aortic regurgitation. Tricuspid Valve Structurally normal tricuspid valve. Trace to mild tricuspid regurgitation. Pulmonic Valve Structurally normal pulmonic valve. Pericardium Normal pericardium. Aorta Aortic Root is dilated and measures 4.1cm. CONCLUSIONS Normal LV dimension and systolic function Mild aortic stenosis and moderate to severe aortic insufficiency Previewed by: Dr. Antonio Thomas MD (Electronically Signed) Final Date: 03 April 2022 18:14
== END | disposition home or self-care (01) ==
LOC: RADECHMAIN 11:23
PROVIDERS: ATTEND Internal Medicine Interventional Cardiology
DX: I35.2 Nonrheumatic aortic (valve) stenosis with insufficiency (principal)
CPT/HCPCS: 93306

== ENCOUNTER → 2022-04-27 | Outpatient (CLI) | payer MEDICAID ==
[2022-04-27 19:45] LABS: Protein, Total 7.1 g/dL (6.2-8.2)
== END | disposition home or self-care (01) ==
LOC: LABWHC1 12:29
PROVIDERS: ATTEND Family Medicine
DX: M85.80 Other specified disorders of bone density and structure, unspecified site (principal)
CPT/HCPCS: 36415; 81050; 84165; 84166

== ENCOUNTER → 2022-09-21 | Outpatient (CLI) | payer MEDICAID ==
[2022-09-21 11:08] LABS: HCT 43.5 % (39.6-50.0); HGB 14.8 g/dL (13.0-17.0); MCH 32.1 pg (27.0-32.0); MCV 94.4 fL (80.0-97.0); Mean Platelet Volume 10.5 fL (9.5-12.2); NRBC Per 100 WBC 0 /100 WBCS (0.0-0.0); Platelet Count 255 X 10*3/uL (140-440); RBC 4.61 X 10*6/uL (4.40-5.60); RDW 12.4 % (11.5-14.5); WBC 7.91 X 10*3/uL (4.50-10.00)
[2022-09-21 11:32] LABS: Chol/HDL Ratio 3.12 Ratio; LDL Cholesterol,Calculated 82.3 mg/dL (0.0-131.0)
[2022-09-21 11:33] LABS: ALT 36 U/L (10-49); AST 27 U/L (14-35); African American GFR (CKD) 118.4 (60.0-200.0); Albumin 4.3 g/dL (3.8-4.9); Alkaline Phosphatase 72 U/L (41-126); BUN/Creat Ratio 18.82 Ratio (12.00-20.00); Calcium 9.2 mg/dL (8.7-10.3); Carbon Dioxide 24.7 mmol/L (20.0-27.5); Chloride 105 mmol/L (96-109); Glucose 113 mg/dL (70-110); Non-African American GFR(CKD) 102.2 (60.0-200.0); Potassium 4.5 mmol/L (3.5-5.5); Sodium 141 mmol/L (135-145); Total Protein 6.3 g/dL (6.2-8.2)
== END | disposition home or self-care (01) ==
LOC: LABWHC1 07:26
PROVIDERS: ATTEND Family Medicine
DX: R73.03 Prediabetes (principal)
CPT/HCPCS: 36415; 80053; 80061; 83036; 84153; 84443; 85027

== ENCOUNTER → 2023-02-03 | Outpatient (CLI) | payer MEDICAID ==
--- NOTE | 2023-02-04 07:54 | CA ---
Transthoracic Echo Report Name: Leon Lincoln Age: 52 Gender: M : 1970 Exam Date: 02/03/2023 13:23 Exam Location: [place] [facility] Ht (in): 75 Wt (lb): 255 Ordering Physician: Brianda Sosa MD ([id number]) Attending/Referring Phys: Brianda Sosa MD ([id number]) Sexologist Jenny Cosme [facility] Procedure CPT: Indications: I71.21 ANEURYSM OF THE ASCENDING AORTA, WITHOUT RU Cardiac Hx: Technical Quality: Fair Contrast 1: Total Dose (mL): Contrast 2: Total Dose (mL): MEASUREMENTS (Male / Female) Normal Values 2D ECHO LV Diastolic Diameter PLAX 5.9 cm 4.2 - 5.9 / 3.9 - 5.3 cm LV Systolic Diameter PLAX 4.1 cm IVS Diastolic Thickness 1.2 cm 0.6 - 1.0 / 0.6 - 0.9 cm LVPW Diastolic Thickness 0.9 cm 0.6 - 1.0 / 0.6 - 0.9 cm LV Relative Wall Thickness 0.4 LVOT Diameter 2.1 cm Ascending Aorta Diameter 4.5 cm M-MODE Aortic Root Diameter MM 3.6 cm LA Systolic Diameter MM 3.9 cm LA Ao Ratio MM 1.1 DOPPLER AV Peak Velocity 255.8 cm/s AV Peak Gradient 26.2 mmHg AV Mean Velocity 203.6 cm/s AV Mean Gradient 17.6 mmHg AV Velocity Time Integral 61.3 cm AI Peak Velocity 385.6 cm/s AI Peak Gradient 59.5 mmHg AI Pressure Half Time 540.0 ms LVOT Peak Velocity 97.9 cm/s LVOT Peak Gradient 3.8 mmHg LVOT Velocity Time Integral 24.8 cm LVOT Stroke Volume 87.0 cm??? LVOT Stroke Volume Index 35.8 ml/m??? LVOT Cardiac Index 2016.9 cm???/min???m??? AV Area Cont Eq vti 1.4 cm??? AV Area Cont Eq pk 1.3 cm??? Mitral E Point Velocity 47.9 cm/s Mitral A Point Velocity 65.2 cm/s Mitral E to A Ratio 0.7 MV Deceleration Time 351.3 ms LV E' Lateral Velocity 4.5 cm/s Mitral E to LV E' Lateral Ratio 10.6 LV E' Septal Velocity 3.5 cm/s Mitral E to LV E' Septal Ratio 13.8 TR Peak Velocity 223.2 cm/s TR Peak Gradient 19.9 mmHg Right Atrial Pressure 3.0 mmHg Pulmonary Artery Systolic Pressu 22.9 mmHg Right Ventricular Systolic Press 22.9 mmHg FINDINGS Left Ventricle Mildly increased septal wall thickness. Mild left ventricular dilatation. Normal left ventricular systolic function with no obvious regional wall motion abnormalities. Left ventricular ejection fraction is estimated at 55-60 %. Right Ventricle Normal right ventricular size. Right Atrium Mild right atrial dilatation. Left Atrium Mild left atrial dilatation. Mitral Valve Structurally normal mitral valve. Mild mitral regurgitation. Aortic Valve Bicuspid aortic valve. Diffuse thickening of the aortic valve cusps with reduced excursion. Mild aortic stenosis with a peak gradient of 26.17 mmHg and a mean gradient of 17.62 mmHg. moderate eccentric aortic regurgitation. Tricuspid Valve Structurally normal tricuspid valve. Trace tricuspid regurgitation. Pulmonic Valve Pulmonic valve not well visualized. Trace pulmonic regurgitation. Pericardium No pericardial effusion. Aorta Mild aortic dilatation at the level of the sinuses of valsalva (root). Moderately dilated proximal ascending aorta (tube). CONCLUSIONS 1. Normal left ventricle size and systolic function 2. Bicuspid aortic valve with mild aortic stenosis and moderate aortic regurgitation 3. Mild mitral regurgitation 4. Dilated ascending aorta Previewed by: Dr. Robles Gastelum MD (Electronically Signed) Final Date: 04 February 2023 07:53
--- NOTE | 2023-02-04 09:06 | CT ---
EXAMINATION TYPE: CT angio chest CT DLP: 906 mGycm, Automated exposure control for dose reduction was used. DATE OF EXAM: 02/03/2023 1:28 PM COMPARISON: 02/17/2022 and dating back to 10/04/2017. CLINICAL INDICATION:Male, 52 years old with history of I71.21 ANEURYSM OF THE ASCENDING AORTA, WITHOU T RU; Ascending aortic aneurysm TECHNIQUE/CONTRAST: CTA scan of the thorax is performed without and with IV Contrast, patient injected with 100 mL of Iso alexis 370, MIP images are created and reviewed these are created on a separate workstation.. FINDINGS: Lungs/Pleura: Mild centrilobular emphysema changes. Stable right upper lung pulmonary nodule measurin g 4 mm series 6 image 41 dated back to 2018. No evidence of focal consolidation, pleural effusion or pneumothorax. Airway: Large airways are patent. Heart: Heart is mildly enlarged for size with aortic valve calcifications and mild coronary artery ca lcifications. Vasculature: No evidence for intramural hematoma on noncontrast. No evidence of intimal flap to sugge st dissection. No aneurysm identified. Scattered atherosclerotic disease. Ascending thoracic aorta is ectatic measuring up to 4.4 cm with smooth tapering. Mediastinum: No gross evidence of adenopathy. Musculoskeletal: Moderate degenerative disc disease changes are present throughout the thoracolumbar spine. Soft Tissues: Unremarkable. Lower neck: No significant findings. Upper Abdomen: No significant findings. IMPRESSION: 1. Ascending thoracic aorta is ectatic measuring up to 4.4 cm not significantly changed from 2018. 2. Stable right upper lung pulmonary nodule measuring 4 mm dating back to 2018. 3. Moderate aortic valve calcifications.
== END | disposition home or self-care (01) ==
LOC: RADCTMAIN 12:58
PROVIDERS: ATTEND Internal Medicine Interventional Cardiology
DX: I08.0 Rheumatic disorders of both mitral and aortic valves (principal); I71.21 Aneurysm of the ascending aorta, without rupture; R91.1 Solitary pulmonary nodule
CPT/HCPCS: 93306; 71275; Q9967

== ENCOUNTER → 2023-02-08 | Outpatient (CLI) | payer MEDICAID ==
[2023-02-08 14:01] LABS: HCT 42.6 % (39.6-50.0); HGB 14.1 d/dL (13.0-17.0); MCH 31.8 pg (27.0-32.0); MCHC 33.1 d/dL (32.0-37.0); MCV 96.2 FL (80.0-97.0); Mean Platelet Volume 10.7 FL (9.5-12.2); NRBC Per 100 WBC 0 X 10*3/uL (0.00-0.01); Platelet Count 248 X 10*3/uL (140-440); RBC 4.43 X 10*6/uL (4.40-5.60); RDW 12.4 % (11.5-14.5); WBC 8.01 X 10*3/uL (4.50-10.00)
[2023-02-08 14:29] LABS: ALT 74 U/L (10-49); AST 29 U/L (14-35); Albumin 4.3 d/dL (3.8-4.9); Albumin/Globulin Ratio 2.26 Ratio (1.60-3.17); Alkaline Phosphatase 85 U/L (41-126); BUN/Creat Ratio 18.57 Ratio (12.00-20.00); Calcium 9.2 mg/dL (8.7-10.3); Carbon Dioxide 24.9 mmol/L (21.6-31.8); Chloride 105 mmol/L (96-109); Chol/HDL Ratio 3.44 Ratio; Globulin 1.9 d/dL (1.6-3.3); Glucose 115 mg/dL (70-110); LDL Cholesterol,Calculated 80.1 mg/dL (0.0-131.0); Potassium 4.4 mmol/L (3.5-5.5); Sodium 139 mmol/L (135-145); Total Bilirubin 0.4 mg/dL (0.3-1.2); Total Protein 6.2 d/dL (6.2-8.2)
== END | disposition home or self-care (01) ==
LOC: LABWHC1 06:45
PROVIDERS: ATTEND Family Medicine
DX: E11.59 Type 2 diabetes mellitus with other circulatory complications (principal)
CPT/HCPCS: 36415; 80053; 80061; 83036; 85027

== ENCOUNTER → 2023-08-19 | Outpatient (CLI) | payer MEDICAID ==
[2023-08-19 11:36] LABS: ALT 51 U/L (10-49); AST 32 U/L (14-35); Albumin 4.3 g/dL (3.8-4.9); Albumin/Globulin Ratio 1.95 Ratio (1.60-3.17); Alkaline Phosphatase 81 U/L (41-126); BUN/Creat Ratio 23.57 Ratio (12.00-20.00); Blood Urea Nitrogen 16.5 mg/dL (9.0-27.0); Calcium 9.3 mg/dL (8.7-10.3); Carbon Dioxide 25.1 mmol/L (21.6-31.8); Chloride 104 mmol/L (96-109); Chol/HDL Ratio 3.46 Ratio; Globulin 2.2 g/dL (1.6-3.3); Glucose 102 mg/dL (70-110); Potassium 4.6 mmol/L (3.5-5.5); Prostate Specific Antigen 2.21 ng/mL (0.000-3.500); Sodium 141 mmol/L (135-145); Total Bilirubin 0.6 mg/dL (0.3-1.2); Total Protein 6.5 g/dL (6.2-8.2); VLDL Calculation 18.26 mg/dL (5.00-40.00)
[2023-08-19 12:28] LABS: HCT 43.8 % (39.6-50.0); HGB 15.1 g/dL (13.0-17.0); MCH 31.6 pg (27.0-32.0); MCHC 34.5 g/dL (32.0-37.0); MCV 91.6 FL (80.0-97.0); Mean Platelet Volume 10.7 FL (9.5-12.2); NRBC Per 100 WBC 0 X 10*3/uL (0.00-0.01); Platelet Count 276 X 10*3/uL (140-440); RBC 4.78 X 10*6/uL (4.40-5.60); RDW 12.2 % (11.5-14.5); WBC 7.54 X 10*3/uL (4.50-10.00)
== END | disposition home or self-care (01) ==
LOC: LABWHC1 07:04
PROVIDERS: ATTEND Physician Assistant
DX: Z12.5 Encounter for screening for malignant neoplasm of prostate (principal); E11.40 Type 2 diabetes mellitus with diabetic neuropathy, unspecified; E11.59 Type 2 diabetes mellitus with other circulatory complications; E78.5 Hyperlipidemia, unspecified
CPT/HCPCS: 36415; 80053; 80061; 83036; 84153; 84443; 85027

== ENCOUNTER → 2024-04-12 | Outpatient (CLI) | payer MEDICAID ==
[2024-04-12 08:30] LABS: ALT 44 U/L (4-49); AST 40 U/L (17-59); African American GFR (CKD) >90 (>60 ml/min/1.73 sqM); Albumin 4.1 g/dL (3.5-5.0); Albumin/Globulin Ratio 1.6; Alkaline Phosphatase 67 U/L (38-126); Anion Gap 6 mmol/L; Blood Urea Nitrogen 11 mg/dL (9-20); Calcium 8.9 mg/dL (8.4-10.2); Carbon Dioxide 29 mmol/L (22-30); Chloride 103 mmol/L (98-107); Globulin 2.5 g/dL; Glucose 105 mg/dL (74-99); HCT 43.5 % (39.0-53.0); HGB 14.7 gm/dL (13.0-17.5); MCH 32.4 pg (25.0-35.0); MCHC 33.8 g/dL (31.0-37.0); MCV 95.8 fL (80.0-100.0); Mean Platelet Volume 7.5; Non-African American GFR(CKD) >90 (>60 ml/min/1.73 sqM); Platelet Count 264 k/uL (150-450); Potassium 4.6 mmol/L (3.5-5.1); RBC 4.54 m/uL (4.30-5.90); RDW 12.1 % (11.5-15.5); Sodium 138 mmol/L (137-145); Total Bilirubin 0.6 mg/dL (0.2-1.3); Total Protein 6.6 g/dL (6.3-8.2); WBC 7.1 k/uL (3.8-10.6)
--- NOTE | 2024-04-12 10:10 | CT ---
EXAMINATION TYPE: CT angio chest DATE OF EXAM: 04/12/2024 8:21 AM COMPARISON: Chest radiograph from same day. Multiple CTs of the chest with most recent on . CLINICAL INDICATION: Male, 53 years old with history of I71.20 THORACIC AORTIC ANEURYSM; thoracic aor ta aneurysm TECHNIQUE/CONTRAST: CTA scan of the thorax is performed with IV Contrast, patient injected with 100 mL of Isovue 370, MIP images are created and reviewed these are created on a separate workstation.. CT DLP: 833 mGycm, Automated exposure control for dose reduction was used. FINDINGS: Lungs/Pleura: Similar Mild centrilobular emphysema changes. Stable right upper lung pulmonary nodule measuring 4 mm dated back to 2018. No evidence of focal consolidation, pleural effusion or pneumothor ax. Airway: Large airways are patent. Heart: Heart is mildly enlarged for size with aortic valve calcifications and mild coronary artery ca lcifications. Vasculature: No evidence for intramural hematoma on noncontrast. No evidence of intimal flap to sugge st dissection. No aneurysm identified. Scattered atherosclerotic disease. Ascending thoracic aorta is ectatic measuring up to 4.4 cm with smooth tapering. Mediastinum: No gross evidence of adenopathy. Musculoskeletal: Moderate degenerative disc disease changes are present throughout the thoracolumbar spine. Soft Tissues: Unremarkable. Lower neck: No significant findings. Upper Abdomen: No significant findings. IMPRESSION: 1. Stable ascending thoracic aorta is ectatic measuring up to 4.4 cm not significantly changed from 2018. 2. Stable right upper lung pulmonary nodule measuring 4 mm dating back to 2018. 3. Moderate aortic valve calcifications. [facility], , 04/12/2024 10:07 AM
[2024-04-12 15:34] LABS: Chol/HDL Ratio 3.36 Ratio; LDL Cholesterol,Calculated 81.8 mg/dL (0.0-131.0)
== END | disposition home or self-care (01) ==
LOC: RADCTMAIN 07:41
PROVIDERS: ATTEND Thoracic Surgery (Cardiothoracic Vascular Surgery)
DX: I71.20 Thoracic aortic aneurysm, without rupture, unspecified (principal); E11.59 Type 2 diabetes mellitus with other circulatory complications; K75.81 Nonalcoholic steatohepatitis (NASH); R91.1 Solitary pulmonary nodule; I35.8 Other nonrheumatic aortic valve disorders; J43.2 Centrilobular emphysema
CPT/HCPCS: 80061; 80053; 84443; 85027; 83036; 71275; 36415; Q9967

== ENCOUNTER → 2024-07-25 | Outpatient (CLI) | payer MEDICAID ==
--- NOTE | 2024-07-25 13:31 | CA ---
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 Codes: Rhythm: Patient History: Cardiac Medications: SEE LIST,,,,, Medications in past 24 hours: Contrast: N/A Stress Results Protocol: Dexter Total dose(mL): NA Exercise Duration (min:sec): 10:[address] Depression (mm): Angina Score: Almeida Score: METS: 11.7 Resting HR: 73 Resting BP: 136 / 93 Peak HR: 149 Peak BP: 209 / 96 Max Predicted HR: 165 90 % Max Predicted HR Target HR: 140 Double Product: [id number] Stress Summary: The patient's target heart rate was achieved BP Response: Normal Reason for Termination: MAX EXERTION/TARGET HR Cardiac Symptoms: NO SYMPTOMS ECG Analysis Resting ECG: Normal sinus rhythm, normal ECG Stress ECG: No abnormal ST/T wave changes with exercise Arrhythmia: None Echo Analysis Resting Echo: Normal resting echocardiogram. Peak Echo Analysis: Normal wall thickening and motion MEASUREMENTS (Male/Female) Normal Values CONCLUSIONS 1. Good exercise tolerance with normal electrocardiographic response to exercise 2. Normal stress echocardiogram with no evidence of stress- induced ischemia Dr. Robles Gastelum MD (Electronically Signed) Final Date: 25 July 2024 13:30
--- NOTE | 2024-07-25 18:40 | CA ---
Transthoracic Echo Report Name: Leon Lincoln Age: 53 Gender: M : 1970 Exam Date: 07/25/2024 09:52 Exam Location: [place] Echo Ht (in): 75 Wt (lb): 253 Ordering Physician: Brianda Sosa MD ([id number]) Attending/Referring Phys: Strap Setter Yana Burgos RDCS Procedure CPT: Indications: Q23.1 CONGENITAL INSUFFICIENCY OF AORTIC VALVE Cardiac Hx: Technical Quality: Fair Contrast 1: Total Dose (mL): Contrast 2: Total Dose (mL): MEASUREMENTS (Male / Female) Normal Values 2D ECHO LV Diastolic Diameter PLAX 5.1 cm 4.2 - 5.9 / 3.9 - 5.3 cm LV Systolic Diameter PLAX 3.2 cm IVS Diastolic Thickness 1.3 cm 0.6 - 1.0 / 0.6 - 0.9 cm LVPW Diastolic Thickness 1.6 cm 0.6 - 1.0 / 0.6 - 0.9 cm LV Relative Wall Thickness 0.6 LVOT Diameter 2.4 cm LV Diastolic Volume MOD BP 173.4 cm??? 67 - 155 / 56 - 104 cm??? LV Systolic Volume MOD BP 65.2 cm??? 22 - 58 / 19 - 49 cm??? LV Ejection Fraction MOD BP 62.4 % >= 55 % LV Cardiac Index MOD BP 3388.9 cm???/min???m??? LV Diastolic Volume MOD 4C 183.5 cm??? LV Systolic Volume MOD 4C 64.2 cm??? LV Ejection Fraction MOD 4C 65.0 % LV Cardiac Index MOD 4C 3737.3 cm???/min???m??? LV Diastolic Length 4C 9.2 cm LV Systolic Length 4C 7.4 cm LV Diastolic Volume MOD 2C 164.8 cm??? LV Systolic Volume MOD 2C 65.2 cm??? LV Ejection Fraction MOD 2C 60.4 % LV Cardiac Index MOD 2C 3117.7 cm???/min???m??? LV Diastolic Length 2C 9.2 cm LV Systolic Length 2C 7.3 cm LA Volume 74.6 cm??? 18 - 58 / 22 - 52 cm??? LA Volume Index 29.9 cm???/m??? 16 - 28 cm???/m??? Ascending Aorta Diameter 4.5 cm DOPPLER AV Peak Velocity 276.6 cm/s AV Peak Gradient 30.6 mmHg AV Mean Velocity 200.0 cm/s AV Mean Gradient 17.4 mmHg AV Velocity Time Integral 59.2 cm LVOT Peak Velocity 95.4 cm/s LVOT Peak Gradient 3.6 mmHg LVOT Velocity Time Integral 21.4 cm LVOT Stroke Volume 94.1 cm??? LVOT Stroke Volume Index 38.8 ml/m??? LVOT Cardiac Index 2945.2 cm???/min???m??? AV Area Cont Eq vti 1.6 cm??? AV Area Cont Eq pk 1.5 cm??? MV Area PHT 3.7 cm??? Mitral E Point Velocity 67.3 cm/s Mitral A Point Velocity 68.2 cm/s Mitral E to A Ratio 1.0 MV Deceleration Time 207.1 ms PV Peak Velocity 121.1 cm/s PV Peak Gradient 5.9 mmHg FINDINGS Left Ventricle Left ventricular ejection fraction is estimated at 55-60 %. Normal left ventricular systolic function with no obvious regional wall motion abnormalities. Left ventricular cavity size normal. Mildly increased left ventricular wall thickness. Right Ventricle Normal right ventricular size and function. Unable to estimate the right ventricular systolic pressure. Right Atrium Normal right atrial size. Left Atrium Mildly increased left atrial volume. Mitral Valve Structurally normal mitral valve. No evidence for mitral valve prolapse. No mitral stenosis. Mild mitral regurgitation. Aortic Valve Bicuspid aortic valve. Diffuse thickening of the aortic valve cusps with reduced excursion. Mild aortic stenosis. Mild to moderate aortic regurgitation. Tricuspid Valve Structurally normal tricuspid valve. No tricuspid stenosis. Mild tricuspid regurgitation. Pulmonic Valve Structurally normal pulmonic valve. No pulmonic stenosis. Trace pulmonic regurgitation. Pericardium No pericardial effusion. Aorta Moderatedilated aortic annulus. Moderate aortic dilatation at the level of the aortic arch. CONCLUSIONS 1. Normal left ventricular size and systolic function 2. Bicuspid aortic valve with mild to moderate eccentric aortic regurgitation and mild stenosis 3. Mild mitral and tricuspid regurgitation 4. Moderately dilated ascending aorta Previewed by: Dr. Robles Gastelum MD (Electronically Signed) Final Date: 25 July 2024 18:39
== END | disposition home or self-care (01) ==
LOC: RADNMMAIN 09:38
PROVIDERS: ATTEND Internal Medicine Interventional Cardiology
DX: I10 Essential (primary) hypertension (principal); Q23.1 Congenital insufficiency of aortic valve; I36.1 Nonrheumatic tricuspid (valve) insufficiency; I51.89 Other ill-defined heart diseases
CPT/HCPCS: 93306; 93351

== ENCOUNTER → 2024-11-30 | Outpatient (CLI) | payer MEDICAID ==
[2024-11-30 10:16] LABS: HCT 41.4 % (39.6-50.0); HGB 14.0 g/dL (13.0-17.0); MCH 31.5 pg (27.0-32.0); MCHC 33.8 g/dL (32.0-37.0); MCV 93.0 FL (80.0-97.0); NRBC Per 100 WBC 0 X 10*3/uL (0.00-0.01); Platelet Count 249 X 10*3/uL (140-440); RBC 4.45 X 10*6/uL (4.40-5.60); RDW 12.4 % (11.5-14.5); WBC 7.59 X 10*3/uL (4.50-10.00)
[2024-11-30 10:38] LABS: ALT 36 U/L (10-49); AST 29 U/L (14-35); Albumin 4.3 g/dL (3.8-4.9); Albumin/Globulin Ratio 2.39 Ratio (1.60-3.17); Alkaline Phosphatase 70 U/L (41-126); Anion Gap 10.00 mmol/L (4.00-12.00); BUN/Creat Ratio 17.12 Ratio (12.00-20.00); Blood Urea Nitrogen 13.7 mg/dL (9.0-27.0); Calcium 9.1 mg/dL (8.7-10.3); Carbon Dioxide 27.0 mmol/L (21.6-31.8); Chloride 105 mmol/L (96-109); Cholesterol 130.00 mg/dL (0.00-200.00); Globulin 1.8 g/dL (1.6-3.3); Glucose 105 mg/dL (70-110); HDL Cholesterol 39.40 mg/dL (40.00-60.00); LDL Cholesterol,Calculated 77.3 mg/dL (0.0-131.0); Potassium 4.4 mmol/L (3.5-5.5); Sodium 142 mmol/L (135-145); Total Protein 6.1 g/dL (6.2-8.2); Triglycerides 66.40 mg/dL (0.00-149.00); VLDL Calculation 13.28 mg/dL (5.00-40.00)
[2024-11-30 10:39] LABS: Prostate Specific Antigen 2.29 ng/mL (0.000-3.500)
== END | disposition home or self-care (01) ==
LOC: LABWHC1 06:48
PROVIDERS: ATTEND Family Medicine
DX: E11.9 Type 2 diabetes mellitus without complications (principal)
CPT/HCPCS: 36415; 80053; 80061; 83036; 84153; 84443; 85027